=== PATIENT | female | born 1945 | race Two or more races ===

== ENCOUNTER → 2018-09-27 | Outpatient (CLI) | payer MEDICARE ==
--- NOTE | 2018-09-27 17:00 | RADIOLOGY IMAGING REPORT ---
[place] [facility] [place] KATIE GUAJARDO : [id number] MR: [id number] V: [id number] EXAM DATE: [id number] ORDERING PHYSICIAN: TIFFANIE CORNEJO TECHNOLOGIST: Josefina Ambriz PROCEDURE:BILATERAL DIGITAL SCREENING MAMMOGRAM WITH CAD ASSISTED INTERPRETATION & 3D TOMOSYNTHESIS COMPARISON:Prior mammograms 03/01/17, 10/22/14. INDICATIONS:screening FINDINGS: The breasts are almost entirely fatty. The parenchymal pattern has remained stable allowing for difference in mammographic technique & patient positioning. DIAGNOSTIC CATEGORY 1--NEGATIVE. RECOMMENDATIONS: ROUTINE MAMMOGRAM AND CLINICAL EVALUATION. IMPRESSION: BIRADS 1: Negative. No significant abnormality is seen. Dictated by: Luisa Graff M.D. on 09/27/2018 at 15:28 Transcribed by: KAREN on 09/27/2018 at 15:49 Approved by: Luisa Graff M.D. on 09/27/2018 at 16:58 [facility]
== END ==
LOC: MAMO 09-05 00:44
PROVIDERS: ATTEND Family Medicine
DX: Z12.31 Encounter for screening mammogram for malignant neoplasm of breast (principal)
CPT/HCPCS: 77063; 77067

== ENCOUNTER → 2018-10-01 | Outpatient (CLI) | payer MEDICARE ==
--- NOTE | 2018-10-01 17:09 | RADIOLOGY IMAGING REPORT ---
FACILITY: [facility] PATIENT NAME: Isabela Tipton : 1945 MR: [id number] V: [id number] EXAM DATE: ORDERING PHYSICIAN: TIFFANIE CORNEJO TECHNOLOGIST: Location: [facility] Patient: Isabela Tipton : 1945 Visit/Account:[id number] Date of Sevice: 10/01/2018 EXAMINATION: Transvaginal pelvic ultrasound with duplex Doppler evaluation 10/01/2018 2:10 PM HISTORY: Pelvic pain.; LMP: Postmenopausal COMPARISON STUDIES: none. FINDINGS: Uterus: 5.0 x 2.1 x 4.7 cm Myometrium: Mildly heterogeneous. Single discrete fibroid in the anterior uterine body measures 1.2 x 0.9 x 1.0 cm. Endometrium: The endometrium is thin. There is some fluid along the endometrial cavity. No endometr ial mass. Endometrium on each side of the fluid measures less than 1 mm in thickness. Cervix: negative Ovaries: right ovary 1.1 x 1.1 x 0.9 cm, left ovary 1.5 x 1.4 x 0.8 cm, both normal Blood flow is documented in each ovary by Doppler ultrasound. Adnexa: negative Free pelvic fluid: none IMPRESSION: 1. No acute etiology for pain demonstrated. 2. Endometrium is thin and potentially atrophic. There is a small amount of fluid along the endomet rial canal. 3. 1.2 cm anterior uterine body fibroid is potentially submucosal in location. Report Dictated By: Jim West MD at 10/01/2018 5:03 PM Report E-Signed By: Jim West MD at 10/01/2018 5:05 PM WSN:[id number]
== END ==
LOC: US 06:52
PROVIDERS: ATTEND Family Medicine
DX: D25.0 Submucous leiomyoma of uterus (principal)
CPT/HCPCS: 76856

== ENCOUNTER 2019-01-02 08:11 | Emergency (ER) | payer MEDICARE ==
[2019-01-02] MEDS ORDERED: LISI-362 PO (08:15)
[2019-01-02] MEDS ORDERED: ASPIRIN 81 MG CHEW PO ONE (08:15)
--- NOTE | 2019-01-02 08:25 | EKG ---
FACILITY: [facility] PATIENT NAME: KATIE GUAJARDO : [id number] MR: [id number] V: [id number] EXAM DATE: ORDERING PHYSICIAN: RIZWAN OBREGON TECHNOLOGIST: CONNIE Lackey Reason : CADIAC Blood Pressure : / mmHG Vent. Rate : 084 BPM Atrial Rate : 084 BPM P-R Int : 160 ms QRS Dur : 088 ms QT Int : 382 ms P-R-T Axes : 024 -13 024 degrees QTc Int : 451 ms Normal sinus rhythm R wave progression consistent with an old ant/sep AR vs lead placement No previous ECGs available Confirmed by WISAM JUAREZ ([id number]) on 01/02/2019 6:59:56 PM Referred By: MINDI Confirmed By:WISAM JUAREZ
--- NOTE | 2019-01-02 08:26 | ER Report ---
History and Physical Time Seen By MD: 08:24 Hx. of Stated Complaint: CHEST PAIN, DIAPHORESIS THAT WOKE HER LAST NIGHT AT APPROX 0100. PAIN FREE AT THIS TIME. HPI/ROS CHIEF COMPLAINT: Chest pain HISTORY OF PRESENT ILLNESS: 73-year-old female no history of cardiac disease said above this morning woke up with chest pain lasted about 5 minutes parasternal nonradiating this is sharp and stabbing sensation with diaphoresis no other associated symptoms no nausea vomiting diarrhea denies any shortness of breath subsequently took a couple aspirin felt better when back to sleep about 5-10 minutes later woke up again this morning completely pain-free completely asymptomatic and decided to come to the emergency room for emergent eval. Patient's last stress test was over 10 years ago has no history of cardiac disease she was 2 year smoker about 30 years ago patient states that she has no history of hyper glycemia her diabetic issues she also denies having elevated cholesterol but does have a history of hypertension. No family history of heart disease either. I will to the emergency department she is completely pain-free and asymptomatic. REVIEW OF SYSTEMS: Respiratory: No cough, no dyspnea. Cardiovascular: Chest pain or palpitation Gastrointestinal: No vomiting, no abdominal pain. Musculoskeletal: No back pain. Remainder of the 14 system rev: Yes Allergies: Coded Allergies: No Known Drug Allergies (Unverified , 01/02/19) Home Meds Reported Medications Lisinopril (LISINOPRIL) 10 Mg Tablet, 10 MG PO QDAY, TAB 01/02/19 Reviewed Nurses Notes: Yes Old Medical Records Reviewed: Yes Hx Substance Use Disorder: No Constitutional Vital Sign - Last 24 Hours 01/02/19 01/02/19 01/02/19 01/02/19 08:14 08:30 09:00 09:30 Temp 98.1 Pulse 79 80 80 Resp 20 19 8 B/P (MAP) 129/89 138/82 (100) 130/67 (88) 131/82 (98) Pulse Ox 93 92 95 O2 Delivery Room Air 01/02/19 01/02/19 01/02/19 10:00 10:38 10:47 Pulse 86 Resp 8 B/P (MAP) 138/72 (94) 142/87 (105) 147/80 (102) Pulse Ox 91 Physical Exam General Appearance: The patient is alert, has no immediate need for airway protection and no current signs of toxicity. [ ] Eyes: Pupils equal and round no injection. Respiratory: Chest is non tender, lungs are clear to auscultation. Cardiac: regular rate and rhythm [ ] Gastrointestinal: Abdomen is soft and non tender, no masses, bowel sounds normal. Musculoskeletal: Neck: Neck is supple and non tender. Extremities have full range of motion and are non tender. Skin: No rashes or lesions. [ ] DIFFERENTIAL DIAGNOSIS: After history and physical exam differential diagnosis was considered for myocardial infarction and STEMI aortic dissection pulmonary embolus atypical chest pain musculoskeletal chest pain infectious etiology Medical Decision Making Data Points Result Diagram: 01/02/1927 01/02/19 0827 Laboratory Hematology Test 01/02/19 08:27 Red Blood Count 4.17 M/uL (4.17-5.56) Mean Corpuscular Volume 96.9 fL (80.0-96.0) Mean Corpuscular Hemoglobin 31.7 pg (26.0-33.0) Mean Corpuscular Hemoglobin Concent 32.7 g/dL (32.0-36.0) Red Cell Distribution Width 14.2 % (11.5-14.5) Mean Platelet Volume 8.7 fL (7.2-11.1) Neutrophils (%) (Auto) 74.2 % (39.4-72.5) Lymphocytes (%) (Auto) 19.3 % (17.6-49.6) Monocytes (%) (Auto) 5.0 % (4.1-12.4) Eosinophils (%) (Auto) 0.7 % (0.4-6.7) Basophils (%) (Auto) 0.8 % (0.3-1.4) Nucleated RBC Relative Count (auto) 0.1 /100WBC Neutrophils # (Auto) 4.2 K/uL (2.0-7.4) Lymphocytes # (Auto) 1.1 K/uL (1.3-3.6) Monocytes # (Auto) 0.3 K/uL (0.3-1.0) Eosinophils # (Auto) 0.0 K/uL (0.0-0.5) Basophils # (Auto) 0.0 K/uL (0.0-0.1) Nucleated RBC Absolute Count (auto) 0.00 K/uL D-Dimer Quantitative (PE/DVT) 1.28 ug/ml (0-0.50) Sodium Level 140 mmol/L (137-145) Potassium Level 4.0 mmol/L (3.5-5.0) Chloride Level 106 mmol/L (98-107) Carbon Dioxide Level 28 mmol/L (22-31) Blood Urea Nitrogen 15 mg/dl (7-18) Creatinine 0.80 mg/dl (0.52-1.04) Glomerular Filtration Rate Calc > 60.0 Random Glucose 118 mg/dl (75-110) Calcium Level 9.5 mg/dl (8.4-10.2) Total Bilirubin 0.9 mg/dl (0.2-1.3) Aspartate Amino Transf (AST/SGOT) 25 U/L (0-35) Alanine Aminotransferase (ALT/SGPT) 19 U/L (0-56) Alkaline Phosphatase 92 U/L (0-126) Troponin I < 0.012 ng/ml Total Protein 7.4 g/dl (6.3-8.2) Albumin 3.8 g/dl (3.5-5.0) Chemistry Test 01/02/19 08:27 White Blood Count 5.6 k/uL (4.5-11.0) Red Blood Count 4.17 M/uL (4.17-5.56) Hemoglobin 13.2 g/dL (12.0-16.0) Hematocrit 40.4 % (34.0-47.0) Mean Corpuscular Volume 96.9 fL (80.0-96.0) Mean Corpuscular Hemoglobin 31.7 pg (26.0-33.0) Mean Corpuscular Hemoglobin Concent 32.7 g/dL (32.0-36.0) Red Cell Distribution Width 14.2 % (11.5-14.5) Platelet Count 250 K/uL (150-450) Mean Platelet Volume 8.7 fL (7.2-11.1) Neutrophils (%) (Auto) 74.2 % (39.4-72.5) Lymphocytes (%) (Auto) 19.3 % (17.6-49.6) Monocytes (%) (Auto) 5.0 % (4.1-12.4) Eosinophils (%) (Auto) 0.7 % (0.4-6.7) Basophils (%) (Auto) 0.8 % (0.3-1.4) Nucleated RBC Relative Count (auto) 0.1 /100WBC Neutrophils # (Auto) 4.2 K/uL (2.0-7.4) Lymphocytes # (Auto) 1.1 K/uL (1.3-3.6) Monocytes # (Auto) 0.3 K/uL (0.3-1.0) Eosinophils # (Auto) 0.0 K/uL (0.0-0.5) Basophils # (Auto) 0.0 K/uL (0.0-0.1) Nucleated RBC Absolute Count (auto) 0.00 K/uL D-Dimer Quantitative (PE/DVT) 1.28 ug/ml (0-0.50) Glomerular Filtration Rate Calc > 60.0 Calcium Level 9.5 mg/dl (8.4-10.2) Total Bilirubin 0.9 mg/dl (0.2-1.3) Aspartate Amino Transf (AST/SGOT) 25 U/L (0-35) Alanine Aminotransferase (ALT/SGPT) 19 U/L (0-56) Alkaline Phosphatase 92 U/L (0-126) Troponin I < 0.012 ng/ml Total Protein 7.4 g/dl (6.3-8.2) Albumin 3.8 g/dl (3.5-5.0) Coagulation Test 01/02/19 08:27 D-Dimer Quantitative (PE/DVT) 1.28 ug/ml ED Course/Re-evaluation ED Course ED course charan female comes in with chest pain last night was pain-free when she woke this morning CT angiographic secondary to elevated dimer 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 consistent with a possible impending rupture of the aorta will be sending her by helicopter to a higher level care excepted by interventional radiology and cardiothoracic surgery patient unanimity stable blood pressures 140s over 80s was started on labetalol drip to try pretensive regulation patient resting comfortably pelvic discharge Decision to Disposition Date: January 02, 2019 Decision to Disposition Time: 10:55 Depart Departure Latest Vital Signs Vital Signs Date Time Temp Pulse Resp B/P (MAP) Pulse Ox O2 Delivery O2 Flow Rate FiO2 01/02/19 10:47 147/80 (102) 01/02/19 10:00 86 8 91 01/02/19 08:14 98.1 Room Air Impression: Primary Impression: Aortic aneurysm Condition: Improved Disposition: XFER TO [facility]UTE [facility]ARE [facility] Referrals: TIFFANIE CORNEJO DO (PCP) RIZWAN OBREGON MD January 02, 2019 08:26
[2019-01-02 08:34] LABS: PLATELET COUNT, AUTOMATED 250 K/uL (150-450)
[2019-01-02] MEDS ORDERED: IOPAMIDOL 76% 150 ML INFUS BTL 150 ML ONE (09:09)
[2019-01-02] MEDS ORDERED: NS(*) 0.9% 50 ML BAG 50 ML ONE (09:10)
--- NOTE | 2019-01-02 09:10 | RADIOLOGY IMAGING REPORT ---
FACILITY: [facility] PATIENT NAME: Isabela Tipton : 1945 MR: [id number] V: [id number] EXAM DATE: ORDERING PHYSICIAN: RIZWAN OBREGON TECHNOLOGIST: Location: [facility] [place] Patient: Isabela Tipton : 1945 Visit/Account:[id number] Date of Sevice: 01/02/2019 CHEST PA LAT INDICATION: Chest pain COMPARISON: None available FINDINGS: Heart size within normal limits. There is no focal infiltrate or lobar consolidation. There is no pneumothorax or pleural effusion. IMPRESSION: 1. No acute cardiopulmonary process. Report Dictated By: Artis Marquez at 01/02/2019 9:07 AM Report E-Signed By: Artis Marquez at 01/02/2019 9:07 AM WSN:[id number]
--- NOTE | 2019-01-02 10:12 | RADIOLOGY IMAGING REPORT ---
FACILITY: [facility] [place] PATIENT NAME: Isabela Tipton : 1945 MR: [id number] V: [id number] EXAM DATE: ORDERING PHYSICIAN: RIZWAN OBREGON TECHNOLOGIST: Location: [facility] [place] Patient: Isabela Tipton : 1945 Visit/Account:[id number] Date of Sevice: 01/02/2019 CT CTA CHEST W & W/O CON HISTORY: cp TECHNIQUE: CTA chest with intravenous contrast attention to pulmonary arteries. Sagittal, coronal a nd slab 3D MIP coronal reconstructed images were also created for further evaluation and interpretati on. One of the following dose optimization techniques was utilized in the performance of this exam: Autom ated exposure control; adjustment of the mA and/or kV according to the patient's size; or use of an i terative reconstruction technique. Specific details can be referenced in the facility's radiology CT exam operational policy. CONTRAST: 75 mL Isovue-370. COMPARISON: None. FINDINGS: Heart/vessels: Satisfactory opacification of the pulmonary arteries without visualized pulmonary emb olus. Mediastinum: Moderate size hiatal hernia. Otherwise negative. Lymph nodes: Negative. Lungs/pleura: Negative. 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 There are 2 subcentimeter hypodensities within the left kidney whic h are too small to characterize however likely represent simple cysts or benign angiomyolipomas. Mil d diverticulosis within the visualized left hemicolon without evidence for diverticulitis. There is a focal outpouching extending off the right aspect of the mid/distal celiac artery measuring approximately 10 x 5 mm (image 272 of series 10), with heterogeneous surrounding soft tissue, concer jesenia for a pseudoaneurysm. The left gastric artery likely arises off the tip of this structure. Bones/soft tissues: Moderate to advanced degenerative changes within the right shoulder. Subacute o r chronic anterolateral right fifth rib fracture. No acute abnormalities identified. Mild superior endplate T5 height loss which is favored degenerative however could be related to an age indeterminan t compression deformity. IMPRESSION: 1. Negative for pulmonary embolus. 2. Incidental note of a focal outpouching extending off the right aspect of the mid/distal celiac ar shanita, most compatible with a pseudoaneurysm or less likely aneurysm. The left gastric artery appears to arise off the tip of this structure. There is concerning surrounding heterogeneous soft tissue w hich could represent impending rupture. Surgical/interventional repair is recommended. 3. Subacute or chronic right anterolateral fifth rib fracture. 4. Mild superior endplate T5 vertebral body height loss which is favored degenerative however could be related to an age indeterminant compression deformity. 5. Moderate size hiatal hernia. 6. Additional incidental/chronic findings, as above. Results were discussed with RIZWAN OBREGON at 01/02/2019 10:07 AM. Report Dictated By: Yaw Torres MD at 01/02/2019 9:51 AM Report E-Signed By: Yaw Torres MD at 01/02/2019 10:07 AM WSN:[id number]
[2019-01-02] MEDS ORDERED: LABETALOL HCL 100 MG/20 ML IVP ONE (11:00)
[2019-01-02] MEDS ORDERED: SODIUM CHLORIDE 0.9% IVP ONE (11:00)
[2019-01-02] MEDS ORDERED: NS(*) 0.9% 1000 ML BAG 1,000 ML IV ONE (11:05)
[2019-01-02 11:20] VITALS: BP 132/70
== END 2019-01-02 11:42 | disposition short-term general hospital (02) ==
LOC: ER 08:20
DX: I71.4 Abdominal aortic aneurysm, without rupture (principal)
CPT/HCPCS: 71046; 71275; 84484; 85025; 85379; 93005; 96365; 99285; J7030; J7050; Q9967; 82040; 82247; 82310; 82374; 82435; 82565; 82947; 84075; 84132; 84155; 84295; 84450; 84460; 84520

== ENCOUNTER → 2019-01-02 | Outpatient (CLI) | payer MEDICARE ==
[~2019-01-02] MED LIST: LISI-362 PO
== END ==
LOC: AMB 11:01
PROVIDERS: ATTEND Nurse Practitioner
DX: I71.4 Abdominal aortic aneurysm, without rupture (principal)